=== PATIENT | female | born 1990 | race Caucasian/White ===

== ENCOUNTER 2021-08-20 20:30 | Inpatient (IN) | payer BC ==
[~2021-08-20 20:30] MED LIST: Bupivacaine 0.25% HCL 30 ML VIAL ONE
[2021-08-20] MEDS ORDERED: hydrALAZINE 20 MG/ML VIAL SLOW IVP PRN ×2 (20:38→21:04)
[2021-08-20 20:59] VITALS: BMI 24.9
[2021-08-20] MEDS ORDERED: Acetaminophen 500 MG TAB PO PRN (21:04)
[2021-08-20] MEDS ORDERED: Ibuprofen 800 MG TAB PO PRN (21:04)
[2021-08-20] MEDS ORDERED: Lidocaine 1% (PF) 30 ML VIAL SC PRN (21:04)
[2021-08-20] MEDS ORDERED: Carboprost 250 MCG/ML AMP IM PRN (21:04)
[2021-08-20] MEDS ORDERED: Methylergonovine 0.2 MG/ML VIAL IM PRN (21:04)
[2021-08-20] MEDS ORDERED: HYDROcodone/Acetaminophen 5/325 mg Tablet PO PRN ×2 (21:04)
[2021-08-20] MEDS ORDERED: Butorphanol Tartrate 1 MG/ML VIAL SLOW IVP PRN (21:04)
[2021-08-20] MEDS ORDERED: Misoprostol 200 MCG TAB PR PRN (21:04)
[2021-08-20] MEDS ORDERED: Ondansetron PF 4 MG/2 ML Vial IVP PRN ×2 (21:04→23:18)
[2021-08-20] MEDS ORDERED: Diphenoxylate HCl/Atropine Tablet PO PRN ×2 (21:04)
[2021-08-20] MEDS ORDERED: Promethazine HCl 25 MG/ML VIAL IM PRN ×2 (21:04→23:18)
[2021-08-20] MEDS ORDERED: NS w/ Oxytocin 30 units 500 ML IV SCH ×2 (21:15)
[2021-08-20] MEDS ORDERED: Fentanyl 2 mcg/Bup 0.1% Cadd 100 ML ONE (22:06)
[2021-08-20 22:26] LABS: Hemoglobin 12.8 g/dL (12.0-15.5); Mean Corpuscular HGB CONC 33.8 g/dL (32.0-36.0); Mean Corpuscular Hemoglobin 30.6 pg (27.0-33.0); Mean Corpuscular Volume 90.7 fl (81.6-98.3); Mean Platelet Volume 12.1 fl (7.4-10.4); Platelet Count 213 10x3/uL (150-450); RBC Distribution Width 12.3 % (11.5-14.5); Red Blood Cell (RBC) Count 4.18 10x6/uL (3.90-5.03); White Blood Cell (WBC) Count 13.9 10x3/uL (3.5-10.5)
[2021-08-20 22:40] LABS: HBSAg Index 0.18 S/CO (0-0.99); Hep B Surf Ag Non-Reactive S/CO (NonReactive); Syphilis Antibody Nonreactive (Nonreactive); Syphilis Antibody Index 0.03 S/CO (<1.00 Non-Reactive)
[2021-08-20 23:04] LABS: HIV (1/2) Antibody/Antigen Non-Reactive (NonReactive); HIV 1/2 INDEX 0.11 S/CO (<1.00)
[2021-08-20] MEDS ORDERED: Lactated Ringer's 500 ML IV PRN (23:18)
[2021-08-20] MEDS ORDERED: ePHEDrine Sulfate 50 MG/10 ML VIAL SLOW IVP PRN (23:18)
[2021-08-20] MEDS ORDERED: Acetaminophen 325 MG TAB PO PRN (23:18)
[2021-08-20] MEDS ORDERED: Naloxone HCl 0.4 mg/ml Vial IVP PRN ×2 (23:18)
[2021-08-20] MEDS ORDERED: Hydrocerin (Eucerin) Cream 120 gm Jar TOP PRN (23:18)
[2021-08-20] MEDS ORDERED: diphenhydrAMINE 50 MG/ML VIAL IVP PRN (23:18)
[2021-08-20] MEDS ORDERED: Fentanyl 2 mcg/Bupivacaine 0.1% Cassette 100 ML EPIDURAL SCH (23:30)
[2021-08-20] MEDS ORDERED: Communication Order-Pharmacy FS SCH (23:30)
[2021-08-21 00:50] LABS: SARS-CoV-2 NAA Rapid Test Not Detected (NotDetected)
[2021-08-21] MEDS ORDERED: Misoprostol 200 MCG TAB ONE (11:22)
[2021-08-21] MEDS ORDERED: Lanolin Ointment 7 GM TUBE TOP PRN (11:45)
[2021-08-21] MEDS ORDERED: Benzocaine-Menthol 82.5 ML CAN TOP PRN (11:45)
[2021-08-21] MEDS ORDERED: Milk Of Magnesia 30 ML UDCUP PO PRN (11:45)
[2021-08-21] MEDS ORDERED: Bisacodyl 10 MG SUPP PR PRN (11:45)
[2021-08-21] MEDS ORDERED: Boostrix 0.5 ML (Tdap) VIAL IM ONE (11:45)
[2021-08-21] MEDS ORDERED: hydrALAZINE 20 MG/ML VIAL SLOW IVP PRN (11:45)
[2021-08-21] MEDS ORDERED: Ibuprofen 800 MG TAB PO SCH (14:00)
[2021-08-21] MEDS: Lactated Ringer's 1,000 ML IV SCH ×2 (16:36→16:37)
[2021-08-21] MEDS: Misoprostol 200 MCG TAB PO SCH ×2 (16:38→18:43)
[2021-08-21] MEDS ORDERED: Acetaminophen/Codeine 30-300mg Tablet PO PRN (16:55)
[2021-08-21] MEDS ORDERED: Ferrous Sulfate 325 MG TAB PO SCH (17:00)
[2021-08-21] MEDS: Ibuprofen 800 MG TAB PO PRN (22:10)
[2021-08-21] MEDS: Docusate Calcium (SURFAK) 240 MG CAP PO SCH (22:10)
[2021-08-22] MEDS: Misoprostol 200 MCG TAB PO SCH ×2 (00:53→05:39)
[2021-08-22] MEDS: Lactated Ringer's 1,000 ML IV SCH ×2 (00:59→06:46)
[2021-08-22 05:11] LABS: Hemoglobin 11.4 g/dL (12.0-15.5); Mean Corpuscular HGB CONC 33.4 g/dL (32.0-36.0); Mean Corpuscular Hemoglobin 30.8 pg (27.0-33.0); Mean Corpuscular Volume 92.2 fl (81.6-98.3); Mean Platelet Volume 11.6 fl (7.4-10.4); Platelet Count 160 10x3/uL (150-450); RBC Distribution Width 12.4 % (11.5-14.5)
[2021-08-22] MEDS: Ibuprofen 800 MG TAB PO PRN (05:38)
[2021-08-22 05:42] VITALS: BP 120/73; TEMP 97.9
[2021-08-22] MEDS ORDERED: Prenatal Vitamin 1 TAB PO SCH (09:00)
[2021-08-22] MEDS: Docusate Calcium (SURFAK) 240 MG CAP PO SCH (09:46)
== END 2021-08-22 14:40 | disposition home or self-care (01) | DRG 807 ==
LOC: CSHLD/OP 20:30 → CSHLD 21:38 → CSHPP 08-21 14:31
PROVIDERS: ADMIT Obstetrics & Gynecology; ATTEND Obstetrics & Gynecology
PROC: 10E0XZZ Delivery of Products of Conception, External Approach (ICD-10-PCS; principal; 2021-08-21)
PROC: 10907ZC Drainage of Amniotic Fluid, Therapeutic from Products of Conception, Via Natural or Artificial Opening (ICD-10-PCS; 2021-08-21)
DX: O72.1 Other immediate postpartum hemorrhage (principal); Z37.0 Single live birth; Z3A.38 38 weeks gestation of pregnancy; Z20.822 Contact with and (suspected) exposure to COVID-19
CPT/HCPCS: 36415; 51702; 85027; 86780; 86850; 86900; 86901; 87340; 87389; 99285; J2590; S0020; U0002